=== PATIENT | female | born 1985 | race African-American/Black ===

== ENCOUNTER 2016-08-27 19:09 | Emergency (ER) | payer BC, OTHER ==
[2016-08-27] MEDS ORDERED: Sodium Chloride 0.9% 1,000 ML ONE (19:33)
--- NOTE | 2016-08-27 20:04 | CT ---
BRAIN CT WITHOUT IV CONTRAST 08/27/16 HISTORY: 31-year-old female with left sided headache and dizziness, elevated blood pressure. No focal mass or midline shift. No intra or extra-axial hemorrhage. The sinuses and mastoids are clear of acute proc ess. IMPRESSION: No acute intracranial process. No mass or bleed. POS: [facility]
[2016-08-27 20:07] LABS: ALT (SGPT) 14 U/L (0-55); AST (SGOT) 13 U/L (5-34); Alkaline Phosphatase 69 U/L (40-150); Anion Gap 13 mmol/L (10-20); BUN (Urea Nitrogen) 10 mg/dL (7.0-18.7); Bilirubin, Total 0.2 mg/dL (0.2-1.2); Calc. Creatinine Clearance 0 mL/min (70-130); Calcium 9.1 mg/dL (7.8-10.44); Carbon Dioxide 24 mmol/L (22-29); Chloride 107 mmol/L (98-107); Estimated GFR-MDRD 78; Protein, Total 7.6 g/dL (6.0-8.3)
--- NOTE | 2016-08-27 20:07 | RAD ---
CHEST PA AND LATERAL: 08/27/16 HISTORY: 31-year-old female with vertigo and hypertension. Headache, dizziness, elevated blood pressure. Heart size is normal. The lungs are clear. IMPRESSION: No acute intrathoracic disease. POS: [facility]
[2016-08-27 20:17] LABS: #Eosinphils 0.2 thou/uL (0.0-0.7); #Monocytes 0.5 thou/uL (0.11-0.59); #Neutrophils 2.8 thou/uL (1.40-6.50); %Basophils 0.7 % (0.0-1.0); %Eosinophils 2.9 % (0.0-10.0); %Lymphocytes 36.1 % (21.0-51.0); %Monocytes 9.6 % (0.0-10.0); Hematocrit 34.7 % (36.0-47.0); Hypochromia SLIGHT = 6-15 cells (100X) (0-5/hpf); Mean Platelet Volume 7.9 fL (7.4-10.4); Microcytosis SLIGHT = 6-15 cells (100X) (0-5/hpf); Red Blood Cell (RBC) Count 4.59 mill/uL (4.20-5.40); White Blood Cell (WBC) Count 5.5 thou/uL (4.8-10.8)
[2016-08-27 20:28] LABS: Bilirubin Negative (Negative); Blood, Urine Trace (Negative); Glucose, Urine (Dipstick) Negative (Negative); Ketone, Urine Trace mg/dL (Negative); Nitrite Negative (Negative); Protein, Urine (Dipstick) 30 mg/dL (Neg-Trace)
[2016-08-27 20:34] LABS: Bacteria/HPF 3+ HPF (None Seen); RBC/HPF 0-3 HPF (0-3)
[2016-08-27] MEDS ORDERED: Lorazepam 2 MG/ML VIAL ONE (20:48)
[2016-08-27] MEDS ORDERED: Ibuprofen 800 MG TAB ONE (20:49)
[2016-08-27] MEDS ORDERED: Cephalexin 500 MG CAP ONE (20:49)
[2016-08-27] MEDS ORDERED: Lorazepam 1 MG TAB ONE (20:49)
[2016-08-27] MEDS ORDERED: Acetaminophen 500 MG TAB ONE (20:49)
== END 2016-08-27 21:38 | disposition home or self-care (01) ==
LOC: NAV ERS 19:09
DX: I10 Essential (primary) hypertension (principal); N39.0 Urinary tract infection, site not specified
CPT/HCPCS: 70450; 71020; 80053; 81003; 81015; 81025; 85025; 87077; 87086; 87186; 93005; J2060; J7050